=== PATIENT | female | born 1995 | race African-American/Black ===

== ENCOUNTER 2017-04-04 15:59 | Emergency (ER) | payer MEDICAID, OTHER ==
[2017-04-04 18:20] LABS: BLOOD, URINE NEG (NEG); COMMENT (UR) CULT NOT INDICATED; CULTURE IF INDICATED CULT NOT INDICATED; GLUCOSE,URINE NEG (NEG); KETONE, URINE NEG (NEG); NITRITE,URINE NEG (NEG); SQUAMOUS EPITHELIAL CELL URINE 3 /hpf (0-5); URINE COLOR YELLOW (YELLW/STRAW)
--- NOTE | 2017-04-04 18:32 | PD ---
HPI Chief Complaint Complains of Pelvic pain when she walks or stands up mainly Date Seen: Apr 04, 2017 Time Seen: 18:25 Travel History International Travel<30 Days: No Contact w/Intl Traveler<30Days: No Known Affected Area: No History of Present Illness HPI Patient is 21-year-old black female 32 weeks currently unregistered presents planning of pelvic pain sharp pain when she stands up or sits down or walks. No bleeding or leakage of fluid. Heart rate tracing is reactive and no contractions Weeks Gestation: 32 Para: 2 : 3 History Obstetric History Obstetric History 2 vaginal deliveries Social History Alcohol Use: No Tobacco Use: No Substance Abuse: No Allergies-Medications (Allergen,Severity, Reaction): Uncoded Allergies: no known allergy (Allergy, Unknown, 04/04/17) Review of Systems General / Constitutional: No: Fever, Weight Gain, Chills, Other Eyes: No: Diploplia, Blurred Vision, Visual changes, Pain, Photophobia HENT: No: Headaches, Vertigo, Lightheadedness Cardiovascular: No: Irregular Rhythm, Chest Pain or Discomfort, Palpitations, Tachycardia, Syncope, Varicosities, Edema, Cyanosis Respiratory: No: Cough, Short of Breath, Other Gastrointestinal: Abdominal Pain, No: Nausea, Vomiting, Diarrhea Genitourinary: No: Decreased Urinary Output, Oliguria Musculoskeletal: No: Limited ROM, Weakness, Cramping, Edema, Pain Skin: No Rash, No Itching, No Dryness, No Lumps, No Change in Pigmentation, No Change in Nails, No Alopecia, No Lesions Neurologic: No: Weakness, Dizziness, Syncope, Focal Abnormalities, Coordination Problem, Headache, Slurred Speech, Seizures Psychiatric: No: Depression, Suicidal Ideations, Homicidal Ideation Endocrine: No: Heat Intolerance, Cold Intolerance, Polydipsia, Polyuria, Other Physical Exam Narrative GENERAL: Well-nourished, well-developed patient. SKIN: Warm and dry. HEAD: Normocephalic and atraumatic. EYES: No scleral icterus. No injection or drainage. ENT: No nasal drainage noted. Mucous membranes pink. Airway patent. NECK: Supple, trachea midline. No JVD. CARDIOVASCULAR: Regular rate and rhythm without murmurs, gallops, or rubs. RESPIRATORY: Breath sounds equal bilaterally. No accessory muscle use. BREASTS: Bilateral exam showed no masses , no retractions, no nipple discharge. ABDOMEN/GI: Abdomen soft, non-tender, bowel sounds present, no rebound, no guarding Gravid to [-32] weeks size Fundal Height: [32-] GENITOURINARY: External Genitalia: intact and normal in appearance BUS glands: [-] Cervix: [post-] Dilatation: [-Closed] Effacement: [-] Thick Station: [-3] Presentation: [-vtx] Membranes: [intact ] Uterine Contractions: [none-] FHT's: Category: [1-] Baseline: [133-] Reactive: [-yes] Variability: [-mod] Decels: [none-] EXTREMITIES: No cyanosis or edema. BACK: Nontender without obvious deformity. No CVA tenderness. NEUROLOGICAL: Awake and alert. Motor and sensory grossly within normal limits. Five out of 5 muscle strength in all muscle groups. Normal speech. Data Data Orders Orders Urinalysis - C+S If Indicated (04/04/17 17:44) Ob Poc Ultrasound (04/04/17 ) Labs Bedside ultrasound done by me shows a 31 week 4 day female fetus in vertex presentation with normal anatomy scan and cardiac motion normal amniotic fluid volume posterior placenta weight of 1869 g Laboratory Tests Test 04/04/17 17:25 Urine Color YELLOW Urine Turbidity CLEAR Urine pH 7.0 Urine Specific [place] 1.022 Urine Protein TRACE Urine Glucose (UA) NEG Urine Ketones NEG Urine Occult Blood NEG Urine Nitrite NEG Urine Bilirubin NEG Urine Urobilinogen LESS THAN 2.0 Urine Leukocyte Esterase LARGE Urine RBC 2 Urine WBC 3 Urine Squamous Epithelial Cells 3 Urine Yeast (Budding) RARE Microscopic Urinalysis Comment CULT NOT INDICATED MDM Interpretation(s) Patient is 21-year-old black female 32 weeks who is unregistered to medical care this time is had irregular visits on and off the one time she was in [facility] and had an visit another time she had an ultrasound in December and [place] she had a scan , she is having pelvic pains that sound very much like musculoskeletal joint and ligament pain. Her urinalysis is negative, cervix is closed and high, heart tones are regular heart rate is reactive and no contractions. BEDSIDE ultrasound done which shows a vertex fetus that is 31 weeks 4 days size of 4 lbs. 2 oz. with normal anatomy scan normal amniotic fluid posterior placenta positive cardiac motion female fetus, baby is active Plan Plan for patient to be at the bedrest as much possible heating pad on her stomach for lower abdominal pain she can take Tylenol liberally and use oral fluids to hydrate. Bedrest the next couple days would improve her condition. She will follow up accordingly Diagnosis Diagnosis: Primary Impression: Abdominal pain during in third trimester Disposition: 01 DISCHARGE HOME Condition: Stable Benja Jung II, MD Apr 04, 2017 18:32
== END 2017-04-04 18:45 | disposition home or self-care (01) ==
LOC: HOBED 15:59
DX: O26.893 Other specified pregnancy related conditions, third trimester (principal); R10.2 Pelvic and perineal pain; Z3A.32 32 weeks gestation of pregnancy
CPT/HCPCS: 59025; 76815; 81001